=== PATIENT | male | born 1975 | race Two or more races ===

== ENCOUNTER 2020-12-02 20:02 | Inpatient (IN) | payer MEDICAID ==
[~2020-12-02] VITALS: Ht 172.7 cm; Wt 76.7 kg
--- NOTE | 2020-12-02 20:11 | NUR ---
PATIENT CAME TO THE ER BED 9 C/O LEFT SIDED CHEST PAIN RADIATING TO THE LEFT ARM [id number] HOUR AGO WHILE WATCHING TELEVISION. PATIENT HAS NEVER HAD THIS PAIN BEFORE. PATIENT STATES THAT HIS FATHER HAD A HEART ATTACK IN HIS 70s AND LIVED. PATIENT IS DIAPHORETIC. PATIENT IS AAOX4. NO SOB. BREATHING EVENLY AND UNLABORED ON ROOM AIR. CONNECTED TO FEEDER TENDER.
[2020-12-02] MEDS ORDERED: NITROGLYCERIN 0.4 MG/TAB BOTTLE ONE (20:13)
--- NOTE | 2020-12-02 20:19 | NUR ---
2nd nitroglycerin given to patient
--- NOTE | 2020-12-02 20:23 | NUR ---
AT BEDSIDE FOR EVALUATION.
--- NOTE | 2020-12-02 20:25 | NUR ---
3RD NITRO GIVEN TO THE PATIENT W/ LITTLE RELIEF FROM 2ND NITRO.
[2020-12-02 20:26] LABS: BASOPHILS # (AUTO) 0.2 /CMM (0.0-0.2); BASOPHILS % (AUTO) 2.2 % (0.0-2.0); EOSINOPHILS % (AUTO) 2.5 % (0.0-6.0); HEMATOCRIT 46 % (39-51); HEMOGLOBIN 16.2 g/dL (13.5-17.5); LYMPHOCYTES # (AUTO) 3.7 /CMM (0.8-4.8); LYMPHOCYTES % (AUTO) 40.3 % (20.0-44.0); MEAN CORPUSCULAR HGB CONC 35 g/dl (31.0-36.0); MEAN CORPUSCULAR VOLUME 91 fL (80-96); MONOCYTES # (AUTO) 0.7 /CMM (0.1-1.30); MONOCYTES % (AUTO) 7.6 % (2.0-12.0); NEUTROPHILS # (AUTO) 4.4 /CMM (1.8-8.9); NEUTROPHILS % (AUTO) 47.4 % (43.0-81.0); PLATELET COUNT (AUTO) 206 /CMM (150-450); RED BLOOD CELL COUNT(AUTO) 5.06 MIL/uL (4.5-6.0); WHITE BLOOD COUNT (AUTO) 9.3 K/uL (4.3-11.0)
[2020-12-02] MEDS ORDERED: NITROGLYCERIN 0.4 MG/TAB BOTTLE SL ONE (20:30)
[2020-12-02] MEDS ORDERED: ASPIRIN 325 MG TABLET ONE (20:43)
[2020-12-02 20:48] LABS: CALCIUM, SERUM 9.7 mg/dL (8.5-10.1); CARBON DIOXIDE 30 mmol/L (21-32); CHLORIDE 103 mmol/L (98-107); CREATININE 1.2 mg/dL (0.6-1.3); GLUCOSE 77 mg/dL (74-106); POTASSIUM 3.3 mmol/L (3.5-5.1); SODIUM SERUM 143 mmol/L (136-145); UREA NITROGEN, BLOOD 12 mg/dL (7-18)
[2020-12-02] MEDS ORDERED: ASPIRIN 325 MG TABLET PO ONE (21:00)
--- NOTE | 2020-12-02 21:22 | NUR ---
DR. LOWERY SPEAKING WITH DR. ERICKSON
[2020-12-02] MEDS ORDERED: HYDROCODONE/APAP 5/325MG TABLET ONE (21:29)
[2020-12-02] MEDS ORDERED: NTG 50 MG/D5W250 ML BOTTL 250 ML IV ONE ×2 (21:29→21:30)
[2020-12-02] MEDS ORDERED: ENOXAPARIN SODIUM 80 MG/0.8 ML DISP.SYRIN SQ ONE ×2 (21:30→21:49)
[2020-12-02] MEDS ORDERED: HYDROCODONE/APAP 5/325MG TABLET PO ONE (21:30)
--- NOTE | 2020-12-02 21:31 | NUR ---
DR. LOWERY SPEAKING WITH DR. BURGOS
--- NOTE | 2020-12-02 21:39 | NUR ---
IV NTG STARTED AT 5MCG/MIN
--- NOTE | 2020-12-02 21:47 | NUR ---
report given to dylan roque for elaina.
[2020-12-02] MEDS ORDERED: IOHEXOL-350 100 ML VIAL IV ONE (21:50)
[2020-12-02] MEDS ORDERED: IV NS 0.9% 250 ML IV ONE (21:51)
[2020-12-02] MEDS ORDERED: POTASSIUM CHLORIDE 20 MEQ TAB.PRT.SR PO ONE (22:00)
--- NOTE | 2020-12-02 22:50 | NUR ---
TELE/RN-ADMITTED THIS 45 Y/O MALE FROM ER PER ACLS PROTOCOL. PT. ADMITTED TELEMETRY STATUS W/ WRITTEN ORDERS FROM MD. NURSING FOCUS:ALTERED CARDIAC TISSUE PERFUSION R/T DIAGNOSIS:CHEST PAIN. ROUTINE ICU ADMISSION CARE INITIATED. AWAKE, ALERT, HEBREW SPEAKING ONLY. W/ ANTERIOR MIDSTERNAL CP, DULL, 11/06. ON NTG DRIP AT 10 MCG/MIN. BP-126/I94, HR-66/MIN SR. AFEBRILE .ON 2L/NC, SATS.-100%.. DENIES SOB.PT. IS A FULL CODE.
[2020-12-02 22:56] VITALS: BP 126/94
[2020-12-02 23:00] VITALS: BP 132/78
[2020-12-02] MEDS ORDERED: ZOLPIDEM TARTRATE 5 MG TABLET PO PRN (23:00)
[2020-12-02] MEDS ORDERED: ACETAMINOPHEN 325 MG TABLET PO PRN (23:00)
[2020-12-02] MEDS ORDERED: HYDROCODONE/APAP 5/325MG TABLET PO PRN (23:00)
[2020-12-02] MEDS ORDERED: MORPHINE SULFATE INJ 2 MG/ML DISP.SYRIN IV STA (23:07)
--- NOTE | 2020-12-02 23:25 | NUR ---
TELE/RN-DR. BURGOS CALLED, UPDATED PT. CONDITION, CLARIFIED ORDER TELEMETRY STATUS, CLARIFIED CORONARY CTA W/ CONTRAST. FOR 2D ECHO TODAY, DR. ERICKSON TO READ. ORDER TO D/C NTG DRIP. GIVE MORPHINE 4 MG SIVP X1 NOW PREVIOUSLY ORDERED.
[2020-12-02 23:30] VITALS: BP 123/70
[2020-12-02] MEDS ORDERED: NTG 50 MG/D5W250 ML BOTTL 250 ML IV PRN (23:30)
--- NOTE | 2020-12-02 23:40 | NUR ---
TELE/RN-CONSENT SIGNED BY PT. FOR CORONARY CT ANGIOGRAPHY AFTER INTERPRETATION AND EXPLANATION GIVEN BY ROBERT BEEBE IN [facility].
[2020-12-02 23:45] VITALS: BP 119/75
--- NOTE | 2020-12-02 23:56 | NUR ---
TELE/RN- REPORT GIVEN TO ROBERT PAT
[2020-12-03] VITALS (46 sets, daily range): BP systolic 67–126; BP diastolic 40–85
--- NOTE | 2020-12-03 00:25 | NUR ---
TELE/RN- TRANSFERRED TO [facility] ROOM 116-1 BY ARON PER ACLS PROTOCOL. Addendum: 12/03/20 at 0044 by LORENA HUDSON RN PT. W/ MID ANTERIOR CP / AT THIS TIME.
--- NOTE | 2020-12-03 00:50 | NUR ---
RECEIVED PATIENT FROM ICU, TRANSFERRED TO ROOM 116-1. ALERT AND ORIENTED X3. DENIES ANY PAIN, PATIENT SHOOK HIS HEAD NO AND STATED NO CHEST PAIN AT THIS TIME. ON O2 2LPM VIA NC, O2 SAT 99%. BED LOCKED AND IN LOWEST POSITION. CALL LIGHT WITHIN REACH. WILL CONTINUE TO MONITOR.
[2020-12-03] MEDS ORDERED: ONDANSETRON HCL/PF 4 MG/2 ML VIAL IV PRN (02:30)
[2020-12-03] MEDS ORDERED: MORPHINE SULFATE INJ 4 MG/ML DISP.SYRIN IV PRN (02:30)
--- NOTE | 2020-12-03 02:37 | NUR ---
PATIENT COMPLAINING OF LEFT SIDE CHEST PAIN RADIATING TO LEFT ARM. 4-01/06 AND SAID PAIN IS INCREASING. NOTIFIED DR. BURGOS WITH ORDERS TO DO TROPONIN NOW, MORPHINE 4MG IV Q4H, ZOFRAN 4MG IV Q4H, TSH IN AM NOTED AND CARRIED OUT. BP 108/70 AND HR SUSTAINING 45, CLARIFIED WITH DR. BURGOS IF OKAY TO GIVE MORPHINE 4MG IV AND SAID OKAY TO GIVE. WILL CONTINUE TO MONITOR FOR PAIN.
--- NOTE | 2020-12-03 03:10 | NUR ---
0310 DR BURGOS WAS MADE AWARE OF CRITICAL TROPONIN RESULT 1.064 WITH ORDERS MADE. ORDERS NOTED AND CARRIED OUT. PATIENT AWAKE IN BED. NOT IN ANY DISTRESS. STATED PAIN LEVEL DECREASED TO 3/10 WHEN ASKED. WILL CONT. TO MONITOR CLOSELY.
[2020-12-03] MEDS ORDERED: IV NS 0.9% 1,000 ML IV ONE (03:30)
[2020-12-03] MEDS: ATORVASTATIN 40 MG TABLET PO SCH ×2 (03:33→21:33)
[2020-12-03 05:08] LABS: BASOPHILS % (AUTO) 0.4 % (0.0-2.0); EOSINOPHILS % (AUTO) 1.5 % (0.0-6.0); HEMATOCRIT 45 % (39-51); HEMOGLOBIN 15.7 g/dL (13.5-17.5); LYMPHOCYTES # (AUTO) 2.2 /CMM (0.8-4.8); LYMPHOCYTES % (AUTO) 30.9 % (20.0-44.0); MEAN CORPUSCULAR HGB CONC 35 g/dl (31.0-36.0); MEAN CORPUSCULAR VOLUME 91 fL (80-96); MONOCYTES # (AUTO) 0.5 /CMM (0.1-1.30); MONOCYTES % (AUTO) 6.8 % (2.0-12.0); NEUTROPHILS # (AUTO) 4.4 /CMM (1.8-8.9); NEUTROPHILS % (AUTO) 60.4 % (43.0-81.0); PLATELET COUNT (AUTO) 198 /CMM (150-450); RED BLOOD CELL COUNT(AUTO) 4.99 MIL/uL (4.5-6.0); WHITE BLOOD COUNT (AUTO) 7.3 K/uL (4.3-11.0)
[2020-12-03 05:20] LABS: CALCIUM, SERUM 9.8 mg/dL (8.5-10.1); CREATININE 0.9 mg/dL (0.6-1.3)
[2020-12-03] MEDS: NITROGLYCERIN PACKET 1 GM PACKET TOP SCH ×3 (06:20→17:32)
--- NOTE | 2020-12-03 07:38 | NUR ---
PATIENT LEFT TO CT ANGIO IN STABLE CONDITION. DENIED ANY CHEST PAIN. ENDORSED TO AM SHIFT.
[2020-12-03] MEDS ORDERED: IOHEXOL-350 100 ML VIAL IV ONE (07:45)
[2020-12-03] MEDS ORDERED: NITROGLYCERIN 0.4 MG/TAB BOTTLE ONE (07:45)
[2020-12-03] MEDS ORDERED: METOPROLOL TARTRATE INJ 5 MG/5 ML AMPUL ONE (07:45)
[2020-12-03] MEDS ORDERED: CT SWABBABLE VALVE TRANS SET 1 EA INFUS.SET MC ONE (07:46)
[2020-12-03] MEDS ORDERED: IV NS 0.9% 250 ML IV ONE (07:46)
--- NOTE | 2020-12-03 07:58 | NUR ---
RN OPENING NOTE RECEIVED PATIENT IN BED AO X 3 YAKUT SPEAKING, DOES NO APPEARS PAIN OR DISCOMFORT, ABLE TO RESPONDS ALL STIMULI. PATIENT LEFT ROOM TO CTA THIS MORNING AND KEPT NPO. RESPIRATORY EVEN AND UNLABORED WITH OXYGEN AT 2L VIA NC. SKIN IS WARM TO TOUCH KEEP CLEAN/DRY, INTACT IV SITE. KEPT ELEVATED HOB FOR ASPIRATION PRECAUTION AND ENSURE AIRWAY, ALSO LOWEST BED POSITION FIR SAFETY. CALL LIGHT WITHIN REACH, WILL CONTINUE TO MONITOR.
[2020-12-03] MEDS ORDERED: METOPROLOL TARTRATE INJ 5 MG/5 ML AMPUL IVP PRN (08:30)
[2020-12-03] MEDS ORDERED: NITROGLYCERIN 0.4 MG/TAB BOTTLE SL ONE (08:30)
--- NOTE | 2020-12-03 08:30 | NUR ---
PATIENT BACK FROM CTA, V/S:T- 97.7, P-55, R-18, [id number] ON ROOM AIR, BP-123/79 IN STABLE CONDITION.
[2020-12-03] MEDS: ASPIRIN EC 81 MG TABLET.DR PO SCH (09:00)
[2020-12-03] MEDS: ENOXAPARIN SODIUM 80 MG/0.8 ML DISP.SYRIN SQ SCH ×2 (09:00→21:00)
--- NOTE | 2020-12-03 09:00 | NUR ---
PATIENT KEEP NPO FOR CARDIAC CATH, WILL HOLD LOVENOX.
--- NOTE | 2020-12-03 11:00 | NUR ---
PATIENT LEFT CARDIAC CATH IN STABLE CONDITION.
[2020-12-03] MEDS ORDERED: IV NS 0.9% 1,000 ML ONE (11:22)
[2020-12-03] MEDS ORDERED: IODIXANOL 150 ML IV ONE (11:23)
[2020-12-03] MEDS ORDERED: LIDOCAINE HCL/MPF 1% 30 ML VIAL IJ ONE (11:24)
[2020-12-03] MEDS ORDERED: MIDAZOLAM HCL 2 MG/2ML VIAL ONE (11:24)
[2020-12-03] MEDS ORDERED: FENTANYL PF 100MCG/2ML AMPUL ONE (11:24)
[2020-12-03] MEDS ORDERED: NITROGLYCERIN ICAR 1,000 MCG/10 ML VIAL ICAR ONE (11:25)
[2020-12-03] MEDS ORDERED: IV SET PRIMARY PUMP SET 1 EA INFUS.SET MC ONE (11:26)
[2020-12-03] MEDS ORDERED: HEPARIN SODIUM, PORCINE 5000 UNITS/1 ML VIAL ONE (11:36)
[2020-12-03] MEDS ORDERED: HEPARIN SODIUM, PORCINE 1,000 UNIT/ML VIAL ONE (11:36)
[2020-12-03] MEDS ORDERED: IODIXANOL 320MG/ML 50 ML IV ONE (11:41)
[2020-12-03] MEDS ORDERED: TICAGRELOR 90 MG TABLET PO ONE (11:52)
--- NOTE | 2020-12-03 14:40 | NUR ---
at apprx 220, radio script writer tried removing 2 cc of air out of right wrist cath site but noted with blood, air 2cc put back in.
--- NOTE | 2020-12-03 16:30 | NUR ---
at apprx 1600 typewriter assembly and parts inspector removed 3 cc of air but noted with blood seeping out , air pu tback in. Vitansl stable patient asymptomatic of any s/s of distress.
[2020-12-03] MEDS ORDERED: IV NS 0.9% 1,000 ML IV PRN (17:30)
--- NOTE | 2020-12-03 18:31 | NUR ---
at apprx 1720, 3 cc of air removed and no blood noted. at 1735 another 3 cc of air removed noted with blood air put back in. at 18 25 fiction and nonfiction writer prose removed 3 cc of air.Patient''s vital WNL. No c/o pain or discomfort. Willl monitor closely.
--- NOTE | 2020-12-03 19:48 | NUR ---
MENTAL HEALTH CASE MANAGER CLOSING NOTES Patient is alert and oriented. Patient is breathing even and unlabored. NO s/s of respiratory distress. Patient is on room air saturating 98%. No c/o chest pain or generalized pain. Patient noted with positive pedal pulses bilaterally. Patient noted with pink tone to his right hand and capillary refill less than 3 seconds. Skin warm to touch. Endorsed to next shift for NIA along with remaining 7 cc of air in right wrist TR BAND to right radial artery. Bed is in lowest and locked position.
--- NOTE | 2020-12-03 20:15 | NUR ---
SOCK IRONER: NOTIFIED DR. CELIA JOHNSTON THAT PT IS NOW S/P TR BAND REMOVAL ON RT. RADIAL ARTERY/RT. WRIST SINCE 1944. TOLERATED WELL, NO ACTIVE BLEEDING & NO HEMATOMA NOTED WT POSITIVE PEDAL PULSES. MD WAS ASKED IF LOVENOX SHOULD BE ADMINISTERED AT 9PM SITE BLEEDING WAS NOTED DURING AIR REMOVAL ON DAY SHIFT. WT ORDER TO HOLD 9PM DOSE. NOTED AND CARRIED OUT. WILL CONTINUE TO MONITOR.
[2020-12-04] VITALS (16 sets, daily range): BP systolic 100–123; BP diastolic 24–69
[2020-12-04] MEDS: NITROGLYCERIN PACKET 1 GM PACKET TOP SCH
[2020-12-04 04:50] LABS: BASOPHILS % (AUTO) 0.3 % (0.0-2.0); EOSINOPHILS % (AUTO) 1.6 % (0.0-6.0); HEMATOCRIT 42 % (39-51); HEMOGLOBIN 14.6 g/dL (13.5-17.5); LYMPHOCYTES # (AUTO) 1.9 /CMM (0.8-4.8); LYMPHOCYTES % (AUTO) 29.9 % (20.0-44.0); MEAN CORPUSCULAR HGB CONC 35 g/dl (31.0-36.0); MEAN CORPUSCULAR VOLUME 91 fL (80-96); MONOCYTES # (AUTO) 0.5 /CMM (0.1-1.30); MONOCYTES % (AUTO) 7.6 % (2.0-12.0); NEUTROPHILS # (AUTO) 3.9 /CMM (1.8-8.9); NEUTROPHILS % (AUTO) 60.6 % (43.0-81.0); PLATELET COUNT (AUTO) 151 /CMM (150-450); RED BLOOD CELL COUNT(AUTO) 4.66 MIL/uL (4.5-6.0); WHITE BLOOD COUNT (AUTO) 6.5 K/uL (4.3-11.0)
[2020-12-04 05:08] LABS: ALBUMIN 3.9 g/dL (3.4-5.0); CREATININE 0.9 mg/dL (0.6-1.3); PHOSPHORUS 3.3 mg/dL (2.5-4.9); POTASSIUM 3.8 mmol/L (3.5-5.1); TOTAL PROTEIN, SERUM 7.2 g/dL (6.4-8.2)
--- NOTE | 2020-12-04 05:27 | NUR ---
PROGRAMMING INTERNSHIP: NOTIFIED DR. BURGOS OF CRITICAL TROPONIN RESULT=33.525 FROM 1.064. PT REMAINED A/OX 4, ON ROOM AIR. ASYMPTOMATIC, NO C/O CHEST PAIN OR DISCOMFORT. NSR ON RESPIRATORY COORDINATOR. SBP IN THE LOW 100s. REFUSED NITROPASTE AT MIDNIGHT. WT ORDER TO DC NITRO PASTE. CLEAR DRESSING ON RT. RADIAL SITE FROM S/P TR REMOVAL REMAINED CLEAN AND DRY, NO ACTIVE BLEEDING, NO HEMATOMA, POSITIVE PEDAL PULSES. SAFETY PRECAUTION NOTED AT ALL TIMES. WILL CONTINUE TO MONITOR.
--- NOTE | 2020-12-04 07:10 | NUR ---
RN OPENING NOTES Patient received in bed resting in semi-fowlers position. Patient is alert and oriented, armeninan speaking. Patient is breathing even and unlabored on room air, tolerating well. NO s/s of respiratory distress. Patient is on room air saturating 99%. No c/o chest pain or generalized pain. Patient noted with positive pedal pulses bilaterally. Patient noted with pink tone to his right hand and capillary refill less than 3 seconds. Skin warm to touch. Safety precautions implemented, side rails up x2, call light within reach. Will continue to monitor and provide care throughout shift.
[2020-12-04] MEDS: CARVEDILOL 3.125 MG TABLET PO SCH ×2 (09:00→21:41)
[2020-12-04] MEDS: TICAGRELOR 90 MG TABLET PO SCH ×2 (09:14→18:18)
[2020-12-04] MEDS: ASPIRIN EC 81 MG TABLET.DR PO SCH (09:14)
--- NOTE | 2020-12-04 11:00 | NUR ---
TYRE RETREADER PATIENT ADMITTED FROM ICU ACCOMPANIED BY 2 NURSES VIA GURNEY. AWAKE, ALERT, ORIENTED X4, VERBALLY RESPONSIVE, ABLE TO MAKE NEEDS KNOWN. BREATHING EVEN AND NON-LABORED. NO COMPLAINT OF PAIN OR DISCOMFORT AT THIS TIME. RIGHT AND LEFT AC IV SITE NOTED, PATENT, INTACT, NO S/S OF INFILTRATION. SKIN WARM, DRY TO TOUCH, INTACT. AMBULATORY WITH SUPERVISION. KEPT CLEAN AND DRY. ALL NEEDS AND CARE ATTENDED PROMPTLY. CALL LIGHT WITHIN EASY REACH.
--- NOTE | 2020-12-04 11:22 | NUR ---
patient transferred to [facility]. report given to margarita at bedside for continuation of care.
--- NOTE | 2020-12-04 15:00 | NUR ---
LOAN CLOSER RECEIVED A CALL FROM KERVIN REGARDING TROPONIN LEVEL OF 23.030. DR. ERICKSON MADE AWARE WITH NEW ORDER TO DISCHARGE HOME NOTED AND CARRIED OUT.
--- NOTE | 2020-12-04 15:31 | NUR ---
airborne electronics analyst texted Dr. Busch regarding Dr. arreguin's order to dc home with new order to dc home tomorrow noted and carried out.
--- NOTE | 2020-12-04 19:03 | NUR ---
OFFICE ADMINISTRATOR CLOSING NOTES PATIENT IN BED, AWAKE, ALERT, ORIENTED X4. ABLE TO MAKE NEEDS KNOWN, VERBALLY RESPONSIVE. DENIES PAIN OR DISCOMFORT AT THIS TIME. NO SOB, BREATHING EVEN AND NON-LABORED. IV ACCESS ON LEFT AC AND RIGHT AC, PATENT, INTACT. ALL DUE MEDS ARE GIVE ORDERED. KEPT CLEAN AND DRY. ALL NEEDS AND CARE ATTENDED PROMPTLY. CALL LIGHT WITHIN EASY REACH. WILL ENDORSE TO CAT DOG OR OTHER PET GROOMER.
--- NOTE | 2020-12-04 19:20 | NUR ---
TOWER FOREMAN OPENING NOTES: RECEIVED PATIENT IN BED, ASLEEP, EASILY AROUSABLE. NO S/S OF DISTRESS NOTED. CALL LIGHT WITHIN REACH. BED IN LOWEST AND LOCKED POSITION.
[2020-12-04] MEDS: ATORVASTATIN 40 MG TABLET PO SCH (21:41)
[2020-12-05] VITALS: BP 95/57
[2020-12-05 04:00] VITALS: BP 109/48
[2020-12-05 08:00] VITALS: BP 101/59
--- NOTE | 2020-12-05 08:00 | NUR ---
UTILITIES AND MAINTENANCE SUPERVISOR OPENING NOTES PATIENT IN BED, AWAKE, ALERT, ORIENTED X4, ABLE TO MAKE NEEDS KNOWN, VERBALLY RESPONSIVE. NO COMPLAINT OF PAIN OR DISCOMFORT AT THIS TIME. BREATHING EVEN AND NON-LABORED. DISTRICT SALES REPRESENTATIVE IN PLACE. RIGHT AND LEFT AC IV NOTED, INTACT, PATENT, NO S/S OF INFECTION. SKIN WARM, DRY TO TOUCH. KEPT CLEAN AND DRY. ALL NEEDS AND CARE ATTENDED. CALL LIGHT PLACED WITHIN EASY REACH.
[2020-12-05] MEDS: ASPIRIN EC 81 MG TABLET.DR PO SCH (08:47)
[2020-12-05] MEDS: TICAGRELOR 90 MG TABLET PO SCH (08:48)
[2020-12-05 08:51] VITALS: BP 97/57
[2020-12-05] MEDS: CARVEDILOL 3.125 MG TABLET PO SCH (08:51)
[2020-12-05] MEDS ORDERED: ATOR40TA PO (08:58)
[2020-12-05] MEDS ORDERED: ASPI-1420 PO (08:58)
[2020-12-05] MEDS ORDERED: TICA90TA PO (08:58)
--- NOTE | 2020-12-05 14:18 | NUR ---
DUAL RATE DEALER PATIENT DISCHARGE HOME TODAY, PICKED UP BY AND SISTER, PATIENT AND FAMILY TEACHING DONE. DISCHARGE PACKETS GIVEN TO . PATIENT AWAKE, ALERT, ORIENTED X4, ABLE TO MAKE NEEDS KNOWN, VERBALLY RESPONSIVE, ABLE TO UNDERSTAND SIMPLE ITALIAN. NO COMPLAINT OF PAIN OR DISCOMFORT NOTED. IV SITE REMOVED. BREATHING EVEN AND NON-LABORED. VITAL SIGN STABLE.
== END 2020-12-05 14:00 | disposition home or self-care (01) | DRG 174 ==
LOC: ER 20:07 → ICU 22:10 → TELE1 12-03 00:22 → ICU 12-03 12:12 → TELE 12-04 10:55 → MED 12-05 11:45
PROVIDERS: ADMIT Internal Medicine; ATTEND Internal Medicine
PROC: 027034Z Dilation of Coronary Artery, One Artery with Drug-eluting Intraluminal Device, Percutaneous Approach (ICD-10-PCS; principal; 2020-12-03)
PROC: 4A023N7 Measurement of Cardiac Sampling and Pressure, Left Heart, Percutaneous Approach (ICD-10-PCS; 2020-12-03)
PROC: B211YZZ Fluoroscopy of Multiple Coronary Arteries using Other Contrast (ICD-10-PCS; 2020-12-03)
DX: I21.4 Non-ST elevation (NSTEMI) myocardial infarction (principal); E78.5 Hyperlipidemia, unspecified; E87.6 Hypokalemia; I10 Essential (primary) hypertension; Z72.0 Tobacco use; Z82.49 Family history of ischemic heart disease and other diseases of the circulatory system
CPT/HCPCS: 36415; 71045-TC; 75574; 80048-TC; 80053-TC; 80061-TC; 83735-TC; 84100-TC; 84443-TC; 84484-TC; 85025-TC; 85378-TC; 85730-TC; 87081-TC; 92980; 93307-TC; C1725; C1769; C9803; G0378; G0500; J1644; J1650; J2250; J2270; J3010; J3490; J7030; J7050; Q9967

== ENCOUNTER 2023-05-02 13:21 | Emergency (ER) | payer MEDICAID ==
[~2023-05-02] VITALS: Ht 177.8 cm; Wt 86.6 kg
[~2023-05-02 13:21] MED LIST: ASPI-1420 PO; ATOR40TA PO; TICA90TA PO
[2023-05-02] MEDS ORDERED: IBUPROFEN 600 MG TABLET ONE (14:24)
[2023-05-02] MEDS ORDERED: IBUPROFEN 600 MG TABLET PO ONE (14:30)
[2023-05-02 14:58] VITALS: BP 126/85; TEMP 98.4; O2SAT 100
== END 2023-05-02 14:59 | disposition home or self-care (01) ==
LOC: ER 13:27
DX: S30.1XXA Contusion of abdominal wall, initial encounter (principal); S80.812A Abrasion, left lower leg, initial encounter; S80.811A Abrasion, right lower leg, initial encounter; I10 Essential (primary) hypertension; V49.9XXA Car occupant (driver) (passenger) injured in unspecified traffic accident, initial encounter; Y93.89 Activity, other specified; Y92.89 Other specified places as the place of occurrence of the external cause; Y99.8 Other external cause status
CPT/HCPCS: 71045-TC

== ENCOUNTER 2023-11-29 18:56 | Inpatient (IN) | payer MEDICAID ==
[~2023-11-29] VITALS: Ht 175.3 cm; Wt 82.1 kg
[2023-11-29] MEDS ORDERED: ASPIRIN 81 MG TAB.CHEW ONE (19:20)
[2023-11-29] MEDS: ASPIRIN 81 MG TAB.CHEW PO ONE (19:20)
[2023-11-29] MEDS ORDERED: MAG HYDROX/AL HYDROX/SIMETH 30 ML UDC ONE (19:27)
[2023-11-29] MEDS ORDERED: FAMOTIDINE (20 MG) 20 MG TABLET ONE (19:27)
[2023-11-29] MEDS ORDERED: NITROGLYCERIN 0.4 MG/TAB BOTTLE ONE (19:27)
[2023-11-29] MEDS: MAG HYDROX/AL HYDROX/SIMETH 30 ML UDC PO ONE (19:28)
[2023-11-29] MEDS: FAMOTIDINE (20 MG) 20 MG TABLET PO ONE (19:28)
[2023-11-29] MEDS: NITROGLYCERIN 0.4 MG/TAB BOTTLE SL ONE (19:29)
[2023-11-29 20:07] LABS: BASOPHILS # (AUTO) 0.1 K/uL (0.0-0.2); BASOPHILS % (AUTO) 1.5 % (0.0-2.0); EOSINOPHILS # (AUTO) 0.1 K/uL (0.0-0.7); HEMATOCRIT 42 % (39-51); HEMOGLOBIN 14.7 g/dL (13.5-17.5); LYMPHOCYTES # (AUTO) 1.7 K/uL (0.8-4.8); LYMPHOCYTES % (AUTO) 35.2 % (20.0-44.0); MEAN CORPUSCULAR HEMOGLOBIN 32 PG (26.0-33.0); MEAN CORPUSCULAR HGB CONC 35 g/dl (31.0-36.0); MEAN CORPUSCULAR VOLUME 91 fL (80-96); MONOCYTES # (AUTO) 0.2 K/uL (0.1-1.30); MONOCYTES % (AUTO) 3.4 % (2.0-12.0); NEUTROPHILS # (AUTO) 2.8 K/uL (1.8-8.9); NEUTROPHILS % (AUTO) 57.9 % (43.0-81.0); PLATELET COUNT (AUTO) 143 K/uL (150-450); RED BLOOD CELL COUNT(AUTO) 4.66 MIL/uL (4.5-6.0); RED CELL DISTRIBUTION WIDTH 13.6 % (11.5-15.0); WHITE BLOOD COUNT (AUTO) 4.9 K/uL (4.3-11.0)
[2023-11-29 20:23] LABS: CALCIUM, SERUM 9.7 mg/dL (8.5-10.1); CARBON DIOXIDE 29 mmol/L (21-32); CHLORIDE 103 mmol/L (98-107); GLUCOSE 152 mg/dL (74-106); POTASSIUM 3.8 mmol/L (3.5-5.1); SODIUM SERUM 138 mmol/L (136-145); UREA NITROGEN, BLOOD 14 mg/dL (7-18)
[2023-11-29 20:39] LABS: NT-PRO BNP 16 pg/mL (0-125)
[2023-11-29] MEDS ORDERED: ONDANSETRON HCL/PF 4 MG/2 ML VIAL ONE (21:50)
[2023-11-29] MEDS ORDERED: MORPHINE SULFATE INJ 4 MG/ML DISP.SYRIN ONE (21:50)
[2023-11-29] MEDS: MORPHINE SULFATE INJ 2 MG/ML DISP.SYRIN IV ONE (21:51)
[2023-11-29] MEDS: ONDANSETRON HCL/PF 4 MG/2 ML VIAL IV ONE (21:51)
[2023-11-29] MEDS ORDERED: ZOLPIDEM TARTRATE 5 MG TABLET PO PRN (23:00)
[2023-11-29] MEDS ORDERED: ACETAMINOPHEN 325 MG TABLET PO PRN (23:00)
[2023-11-29] MEDS ORDERED: ATORVASTATIN 40 MG TABLET PO SCH (23:00)
[2023-11-29] MEDS ORDERED: Z GUARD REMEDY 4 OZ OINT TP PRN (23:00)
[2023-11-29] MEDS ORDERED: ONDANSETRON HCL/PF 4 MG/2 ML VIAL IVP PRN (23:00)
[2023-11-29] MEDS ORDERED: MORPHINE SULFATE INJ 2 MG/ML DISP.SYRIN IV PRN (23:00)
[2023-11-30 01:00] VITALS: BP 117/79; TEMP 97.5; O2SAT 99
[2023-11-30 02:22] VITALS: BP 117/79; TEMP 97.5; O2SAT 99
[2023-11-30 04:00] VITALS: BP 110/71; TEMP 97.7; O2SAT 98
[2023-11-30 07:18] LABS: BASOPHILS % (AUTO) 0.6 % (0.0-2.0); EOSINOPHILS # (AUTO) 0.1 K/uL (0.0-0.7); EOSINOPHILS % (AUTO) 2.6 % (0.0-6.0); HEMATOCRIT 42 % (39-51); HEMOGLOBIN 14.6 g/dL (13.5-17.5); LYMPHOCYTES # (AUTO) 1.6 K/uL (0.8-4.8); LYMPHOCYTES % (AUTO) 34.3 % (20.0-44.0); MEAN CORPUSCULAR HEMOGLOBIN 32 PG (26.0-33.0); MEAN CORPUSCULAR HGB CONC 35 g/dl (31.0-36.0); MEAN CORPUSCULAR VOLUME 91 fL (80-96); MONOCYTES # (AUTO) 0.4 K/uL (0.1-1.30); MONOCYTES % (AUTO) 8.6 % (2.0-12.0); NEUTROPHILS # (AUTO) 2.6 K/uL (1.8-8.9); NEUTROPHILS % (AUTO) 53.9 % (43.0-81.0); PLATELET COUNT (AUTO) 143 K/uL (150-450); RED BLOOD CELL COUNT(AUTO) 4.55 MIL/uL (4.5-6.0); RED CELL DISTRIBUTION WIDTH 13.7 % (11.5-15.0); WHITE BLOOD COUNT (AUTO) 4.7 K/uL (4.3-11.0)
[2023-11-30 07:30] VITALS: BP 109/70; TEMP 98.1; O2SAT 98
[2023-11-30] MEDS: ASPIRIN EC 81 MG TABLET.DR PO SCH (08:24)
[2023-11-30 08:29] LABS: CALCIUM, SERUM 8.9 mg/dL (8.5-10.1); CREATININE 0.9 mg/dL (0.6-1.3); MAGNESIUM 2.5 mg/dL (1.8-2.4); PHOSPHORUS 3.2 mg/dL (2.5-4.9); POTASSIUM 4.5 mmol/L (3.5-5.1)
[2023-11-30] MEDS: CARVEDILOL 6.25 MG TABLET PO SCH (09:41)
[2023-11-30] MEDS: TICAGRELOR 90 MG TABLET PO SCH (09:42)
[2023-11-30 11:30] VITALS: BP_SYST 121; BP_SYST 177; BP_DIAS 111; BP_DIAS 77; TEMP 98.4; O2SAT 97; O2SAT 98
[2023-11-30] MEDS ORDERED: NITROGLYCERIN 0.4 MG/TAB BOTTLE ONE (12:52)
[2023-11-30] MEDS ORDERED: METOPROLOL TARTRATE INJ 5 MG/5 ML AMPUL ONE (12:52)
[2023-11-30] MEDS ORDERED: CT SWABBABLE VALVE TRANS SET 1 EA INFUS.SET MC ONE (12:52)
[2023-11-30] MEDS ORDERED: IOHEXOL-350 100 ML VIAL IV ONE (12:52)
[2023-11-30] MEDS ORDERED: IV NS 0.9% 250 ML IV ONE (12:52)
[2023-11-30] MEDS: NITROGLYCERIN 0.4 MG/TAB BOTTLE SL ONE (13:24)
[2023-11-30] MEDS ORDERED: METOPROLOL TARTRATE INJ 5 MG/5 ML AMPUL IVP PRN (13:30)
[2023-11-30 16:00] VITALS: BP 95/70; TEMP 98.2; O2SAT 99
[2023-11-30] MEDS ORDERED: ATOR40TA PO (18:46)
[2023-11-30] MEDS ORDERED: TICA90TA PO (18:46)
[2023-11-30] MEDS ORDERED: CARV6.25 PO (18:46)
== END 2023-11-30 19:40 | disposition home or self-care (01) | DRG 198 ==
LOC: ER 18:59 → TELE1 22:57 → TELE 11-30 00:47
PROVIDERS: ADMIT Nurse Practitioner Acute Care; ATTEND Nurse Practitioner Acute Care
DX: I25.10 Atherosclerotic heart disease of native coronary artery without angina pectoris (principal); D68.69 Other thrombophilia; R07.9 Chest pain, unspecified; E66.9 Obesity, unspecified; Z95.5 Presence of coronary angioplasty implant and graft; Z68.26 Body mass index [BMI] 26.0-26.9, adult; F17.210 Nicotine dependence, cigarettes, uncomplicated; E78.5 Hyperlipidemia, unspecified; I10 Essential (primary) hypertension; Z79.82 Long term (current) use of aspirin; Z79.02 Long term (current) use of antithrombotics/antiplatelets; Z82.49 Family history of ischemic heart disease and other diseases of the circulatory system; Z79.899 Other long term (current) drug therapy
CPT/HCPCS: 36415; 71045-TC; 75574; 80048-TC; 80061-TC; 83735-TC; 83880; 84100-TC; 84484-TC; 85025-TC; 85378-TC; 93307-TC; G0378; J2270; J2405; J3490; J7050; Q9967